=== PATIENT | female | born 1955 | race Caucasian/White ===

== ENCOUNTER → 2016-11-11 | Outpatient (CLI) | payer OTHER ==
[~2016-11-11] MED LIST: ASPIRIN81 M1 PO; AUGMENTIN 875875 MG PO; FLEXERIL10 MG PO; HYDROCHLOROTHIA25 MG PO; INDOMETHACIN50 MG PO; KLOR-CON 1010 MEQ PO; LASIX40 MG PO; LOVASTATIN20 MG PO; METFORMIN500 MG PO; NAPROSYN500 MG PO; NEXIUM40 MG PO; NORVASC10 MG PO; PRILOSEC40 M1 PO; SEPTRA DS 800 M1 TAB PO; STOOL SOFTENER100 MG PO; VICODIN 500 MG-1 TAB PO; VITAMIN D2400 IU PO; VITAMIN D50000 I3 PO; ZESTRIL40 MG PO; ZYLOPRIM100 MG PO
[2016-11-11 09:43] LABS: BASO # 0.1 10*3/uL (0.0-0.1); BASO % 0.7 % (0.0-1.0); EOS # 0.2 10*3/uL (0.0-0.4); EOS % 1.4 % (1.0-4.0); HEMATOCRIT 44.4 % (37.0-47.0); HEMOGLOBIN 14.1 g/dl (12.0-16.0); IG # 0.2 10*3/uL (0.0-0.1); LYMPH # 2.8 10*3/uL (1.3-4.4); LYMPH % 16.7 % (27.0-41.0); MEAN CELL VOLUME 85.7 fl (81.0-99.0); MEAN CORPUSCULAR HGB 27.2 pg (27.0-31.0); MEAN CORPUSCULAR HGB CONC 31.8 g/dl (33.0-37.0); MONO # 1.1 10*3/uL (0.1-1.0); MONO % 6.7 % (3.0-9.0); NEUT # 12.2 10*3/uL (2.3-7.9); NEUT % 73.4 % (47.0-73.0); PLATELET COUNT AUTOMATED 338 10*3/uL (130-400); RED BLOOD COUNT 5.18 10*6/uL (4.10-5.10); RED CELL DISTRI WIDTH 16.1 % (0-14.5); WHITE BLOOD COUNT 16.6 10*3/uL (4.8-10.8)
[2016-11-11 10:00] LABS: ALBUMIN 3.3 gm/dl (3.1-4.5); ALKALINE PHOSPHATASE 180 U/L (45-117); BILIRUBIN, TOTAL 0.3 mg/dl (0.2-1.0); BUN 16 mg/dl (7-24); CARBON DIOXIDE 24 mmol/L (21-32); CHLORIDE 106 mmol/L (98-107); CHOLESTEROL 137 mg/dL (<200); EST GLOM FILT AFRICAN AMERICAN > 60 ml/min; GLUCOSE 126 mg/dL (65-99); HDL CHOLESTEROL 47 mg/dl (40-60); LDL CHOLESTEROL 50 mg/dL (9-159); POTASSIUM 4.3 mmol/L (3.5-5.1); SGOT/AST 14 IU/L (3-35); SGPT/ALT 29 U/L (12-78); SODIUM 142 mmol/L (136-145); TRIGLYCERIDES 200 mg/dl (<150); VLDL CHOLESTEROL 40 mg/dL (6-40)
[2016-11-11 10:01] LABS: FREE T4 1.25 ng/dl (0.76-1.46)
[2016-11-11 10:27] LABS: FOLIC ACID 7.71 ng/mL (>5.38); VITAMIN D, 25-HYDROXY 40.2 ng/mL (30-100)
== END | disposition home or self-care (01) ==
LOC: CT 11-05 13:00 → LAB 11-10 14:26 → CT 10:00
PROVIDERS: Internal Medicine
DX: Z00.00 Encounter for general adult medical examination without abnormal findings (principal); Z13.1 Encounter for screening for diabetes mellitus; Z13.21 Encounter for screening for nutritional disorder; Z13.220 Encounter for screening for lipoid disorders; K44.9 Diaphragmatic hernia without obstruction or gangrene; K57.30 Diverticulosis of large intestine without perforation or abscess without bleeding; M47.896 Other spondylosis, lumbar region; K80.20 Calculus of gallbladder without cholecystitis without obstruction; K76.0 Fatty (change of) liver, not elsewhere classified; G31.9 Degenerative disease of nervous system, unspecified; R10.9 Unspecified abdominal pain

== ENCOUNTER → 2018-01-08 | Outpatient (CLI) | payer OTHER | END | disposition home or self-care (01) | LOC: CT 01-07 09:00 | DX: M16.0 Bilateral primary osteoarthritis of hip (principal); M54.5 Low back pain ==

== ENCOUNTER → 2018-07-22 | Outpatient (CLI) | payer OTHER ==
[~2018-07-22] MED LIST changes: +CEFUROXIME AXE500 MG PO; +COLACE100 MG PO; +DILTIAZEM HCL120 MG PO; +GUAIFENESIN600 MG PO; +METFORMIN ER500 MG PO; -METFORMIN500 MG PO; +NEURONTIN300 MG PO; +SENNA8.6 MG PO; -STOOL SOFTENER100 MG PO; +VITAMIN D3 PO; +VITAMIN D350000 UNIT PO
== END | disposition home or self-care (01) ==
LOC: WOUNDCARE 08:41
DX: E11.622 Type 2 diabetes mellitus with other skin ulcer (principal); L97.228 Non-pressure chronic ulcer of left calf with other specified severity; L97.811 Non-pressure chronic ulcer of other part of right lower leg limited to breakdown of skin; I87.313 Chronic venous hypertension (idiopathic) with ulcer of bilateral lower extremity; E11.40 Type 2 diabetes mellitus with diabetic neuropathy, unspecified; I10 Essential (primary) hypertension; E78.5 Hyperlipidemia, unspecified; K21.9 Gastro-esophageal reflux disease without esophagitis; M10.9 Gout, unspecified; E66.9 Obesity, unspecified; Z68.43 Body mass index [BMI] 50.0-59.9, adult; Z87.891 Personal history of nicotine dependence

== ENCOUNTER 2019-03-30 09:18 | Inpatient (IN) | payer OTHER ==
[2019-03-30] VITALS (9 sets, daily range): BP systolic 103–208; BP diastolic 44–140
[~2019-03-30] VITALS: Ht 157.5 cm; Wt 127.0 kg
--- NOTE | ~2019-03-30 | EKG ---
[place], [place] ELECTROCARDIOGRAM REPORT NAME: BETHANY RAMOS UNIT #: [id number] ROOM: [facility] DOCTOR: RONALDO DRAFT REPORT BIRTHDATE: [birth year] [facility] Test Date: 2019-03-30 Test Time: 09:35:01 Pat Name: BETHANY RAMOS Department: Room: [facility] Gender: F Plastic Maker: Arianna Perkins : 1955 Requested By: CECILIA MADRID Order Number: [id number] Reading MD: Milind Snider Measurements Intervals [place] Rate: 117 P: 71 DC: 142 QRS: 9 QRSD: 99 T: 120 QT: 324 QTc: 452 Interpretive Statements Sinus tachycardia Anteroseptal infarct, old Abnormal T, consider ischemia, lateral leads No previous ECG available for comparison Electronically Signed On 03-31-2019 4:18:27 PDT by Milind Snider CM:EKGRPT:ELECTROCARDIOGRAM REPORT [id number] CECILIA WILKINS DRAFT REPORT CECILIA MADRID DO
--- NOTE | ~2019-03-30 | PR ---
[place], [place] PROGRESS NOTE NAME: BETHANY RAMOS UNIT #: [id number] ROOM: 502 DOCTOR: AMELIE MILLS MD BIRTHDATE: [birth year] DOS: 04/01/2019 REASON FOR VISIT: Elevated cardiac enzymes and CHF. SUBJECTIVE: The patient is feeling better, still on oxygen. Denies any chest pain. No PND, no orthopnea. Slightly short of breath, but no palpitation or dizziness. She did have some nausea this morning. REVIEW OF SYSTEMS: Review of the 8 systems negative except as mentioned above. RHYTHM STRIPS: The patient in sinus rhythm. PHYSICAL EXAMINATION: VITAL SIGNS: Blood pressure 160/70, pulse 98, respiratory rate 20. GENERAL: Alert, comfortable, in no acute distress. HEENT: Pupils are round and equal. No jaundice. Tongue was moist and pharynx clear. NECK: Supple, no distended neck veins, no carotid bruit. CHEST: Symmetrical, nontender. LUNGS: A few scattered rhonchi. HEART: Regular rhythm, no S3, no palpable thrills. Grade 1/6 systolic murmur. ABDOMEN: Obese, nontender. EXTREMITIES: Showed trace to 1+ edema. Distal pulses palpable. SKIN: Warm and dry. No cyanosis, no clubbing. RECTAL: Deferred. GENITOURINARY: Deferred. NEUROLOGIC: The patient is alert with no focal neurologic deficit. MEDICATIONS AND LABORATORY DATA: Reviewed. IMPRESSION: 1. Acute on chronic respiratory failure, improving. 2. Acute diastolic heart failure, resolved. 3. Left ventricular dysfunction, EF 45-50%. 4. Hypertension. 5. Morbid obesity. 6. Borderline elevation of troponin due to demand ischemia from her hypoxic respiratory failure. 7. Lexiscan stress test today. 8. Continue current medications. 9. No family at bedside at the time of examination. 10. Further recommendation based on her stress test findings. [place], [place] PROGRESS NOTE NAME: BETHANY RAMOS UNIT #: [id number] ROOM: 502 DOCTOR: AMELIE MILLS MD BIRTHDATE: [birth year] AMELIE MILLS MD CM:PNTRANS 03 9 AMELIE MILLS MD 04/02/19149 interface
--- NOTE | ~2019-03-30 | PR ---
[place], [place] PROGRESS NOTE NAME: BETHANY RAMOS UNIT #: [id number] ROOM: 502 DOCTOR: CANDACE ROSS MD BIRTHDATE: [birth year] DOS: 04/02/2019 PULMONARY PROGRESS NOTE SUBJECTIVE: The patient has been noted comfortable at this time without any acute distress this morning of assessment. She has completed the stress testing yesterday as well. The patient edema of lower extremity was resolving. Shortness of breath improved. The oxygen requirement of the noted as resolution of the hypoxia noted at rest on room air of oxygen. She has been refusing use of BiPAP. OBJECTIVE: VITAL SIGNS: Normal temperature, respiratory rate of 18, heart rate 72, blood pressure 151/61. The pulse oxygen saturation recorded as 97% saturation at rest on room air. HEENT: Examination shows head was atraumatic. Eyes nonicterus. NECK: Supple. CARDIOVASCULAR: S1, S2 audible. LUNGS: Without any wheezing or crackles. Decreased breath sounds in the lungs. ABDOMEN: Soft and obese. EXTREMITIES: Noted resolving cellulitis of lower extremity has edema. LABORATORY DATA: BMP this morning is 29, creatinine 1.04, CO2 of 34. IMPRESSION: 1. Stable respiratory status was noted at present time noted to be comfortable. 2. Resolved in marked improvement noted with veksk-zs-gtudvfa hypercapnic and hypoxemic respiratory failure as well. 3. Obstructive sleep apnea disorder. 4. Bronchial asthma. PLAN OF MANAGEMENT: Starting the patient on oral prednisone at this time. Monitor oxygen saturation. Continue diuretic therapy, plan of management. Additional treatment changes will be made for this patient based on the progression of the illness. [place], [place] PROGRESS NOTE NAME: BETHANY RAMOS UNIT #: [id number] ROOM: 502 DOCTOR: CANDACE ROSS MD BIRTHDATE: [birth year] CANDACE FOREMAN MD CM:PNTRANS [id number] CANDACE LAWRENCE MD 04/02/19 1600 interface
--- NOTE | ~2019-03-30 | PR ---
[place], [place] PROGRESS NOTE NAME: BETHANY RAMOS UNIT #: [id number] ROOM: [facility] DOCTOR: PENG URIAS MD BIRTHDATE: [birth year] DOS: 03/31/2019 SUBJECTIVE: The patient says her breathing is significantly improved, although still not at her baseline. OBJECTIVE: GENERAL APPEARANCE: The patient is alert and oriented x 3, in no visible distress. Morbid obesity and generalized weakness. VITAL SIGNS: Blood pressure 153/81, heart rate of 88 beats per minute, breathing 18-20 times per minute, temperature 98.1 degrees Fahrenheit. HEENT AND NECK: Exam within normal limits. CARDIOVASCULAR SYSTEM: Heart rate is regular in rate and rhythm. S1 and S2 normally audible. LUNGS: Clear to auscultation. ABDOMEN: Soft, nontender. No obvious organomegaly. Bowel sounds are present. EXTREMITIES: Without significant cyanosis or edema. Chronic stasis dermatitis in both legs. IMPRESSION: 1. The patient with uxazw-sgzw-btovumh systolic type congestive heart failure, improving with diuresis with Bumex. Serum electrolytes, BUN and creatinine are all being monitored. 2. Acute exacerbation of chronic obstructive pulmonary disease and pneumonia, being treated with Levaquin. The patient still has leukocytosis, now apparently secondary to Solu-Medrol. 3. Pneumonic infiltrates, being treated with Levaquin. I will repeat chest x-ray. White cell count is improving with treatment with antibiotics. 4. Morbid obesity. The patient working with dietary and physical therapy for ambulatory dysfunction. 5. Benign essential hypertension. Blood pressures are controlled. The patient now on metoprolol and lisinopril. 6. Type 2 diabetes mellitus. The patient remains on metformin and no concentrated sweet diet. 7. Mixed hyperlipidemia, treated with simvastatin. 8. Chronic gouty arthritis, asymptomatic. We will continue to follow. 9. Mixed-type hyperlipidemia. The patient is on simvastatin. [place], [place] PROGRESS NOTE NAME: BETHANY RAMOS UNIT #: [id number] ROOM: [facility] DOCTOR: PENG URIAS MD BIRTHDATE: [birth year] PENG URIAS MD CM:BETZAIDA [id number] PENG URIAS MD 03/31/19 3622 interface
--- NOTE | ~2019-03-30 | DS ---
[place], [place] DISCHARGE SUMMARY NAME: BETHANY RAMOS [facility] #: [id number] UNIT #: [id number] ROOM: 502 DOCTOR: PENG URIAS MD BIRTHDATE: [birth year] DOS: 04/02/2019 DISCHARGE DIAGNOSES: 1. Acute over chronic systolic type congestive heart failure with 45% left ventricular ejection fraction. 2. Acute exacerbation of chronic obstructive pulmonary disease. 3. Borderline elevation of troponin, evaluated by Cardiology with normal cardiac stress test, thought to be secondary to respiratory failure and hypoxemia. 4. Pneumonia. 5. Leukocytosis. 6. Mixed type hyperlipidemia. 7. Chronic gouty arthritis. 8. Type 2 diabetes mellitus. 9. Benign essential hypertension. 10. Morbid obesity. 11. Gastroesophageal reflux disease and esophagitis. 12. Esophagus stricture history status post dilatation. 13. Chronic gouty arthritis. 14. Bilateral stasis dermatitis in both legs. HOSPITAL COURSE: The patient was admitted with increased shortness of breath, acute over chronic systolic type congestive heart failure, pneumonia on the chest x-ray. The patient was admitted and treated with IV Bumex. She diuresed very well and chest x-ray now showed complete clearing of CHF and pneumonia. Pneumonia and leukocytosis, treated with Levaquin and resolved. Acute exacerbation of COPD, acute over chronic respiratory failure, resolved with treatment. Dr. Duggan, the children's entertainer followed. She was treated with bronchodilators, corticosteroids and oxygen as needed. She has returned to baseline, respiratory status has returned to baseline. Type 2 diabetes mellitus. Blood sugar was monitored, treated and she was kept on a no concentrated sweet diet. Benign essential hypertension. Blood pressures are staying normal with treatment. She is on lisinopril and metoprolol. Chronic constipation, being treated with Colace and senna. The patient is moving bowels. Mixed hyperlipidemia, being treated with simvastatin. LABORATORY DATA: The patient's white cell count is now 14,800 from use of corticosteroids. BUN and creatinine 29 and 1.04. Chest x-ray is normal now. No CHF or pneumonia seen on the latest chest x-ray prior to discharge. DISCHARGE MANAGEMENT: Levaquin 750 mg daily for 4 more days, gabapentin 400 mg at bedtime, Protonix 40 mg a day, lisinopril 20 mg a day, aspirin 81 mg a day, [place], [place] DISCHARGE SUMMARY NAME: BETHANY RAMOS UNIT #: [id number] ROOM: 502 DOCTOR: BRIDGETT AVENDANO,PENG Nicole BIRTHDATE: [birth year] metformin 500 mg daily, potassium chloride 10 mEq b.i.d., sennoside 8.6 mg b.i.d., metoprolol 50 mg b.i.d., Colace 100 mg b.i.d., simvastatin 20 mg a day. FOLLOWUP: With PCP within 1 week of discharge. One hour time was spent on the patient's planning and discharge management. PENG URIAS MD CM:SHYLA [id number] PENG URIAS MD 04/02/19 1655 interface
--- NOTE | ~2019-03-30 | WRIGHTHP ---
[place], [place] PATIENT HISTORY AND PHYSICAL EXAM NAME: BETHANY RAMOS [facility] #: [id number] UNIT #: [id number] ROOM: [facility] DOCTOR: PENG URIAS MD BIRTHDATE: [birth year] DOS: 03/30/2019 HISTORY OF PRESENT ILLNESS: The patient is a 64-year-old female with a past medical history of: 1. Morbid obesity. 2. Gastroesophageal reflux disease and esophagitis. 3. Type 2 diabetes mellitus. 4. Esophagus stricture. 5. Chronic congestive heart failure with 30-40% EF and severe concentric left ventricular hypertrophy. 6. Benign essential hypertension. 7. Chronic gouty arthritis. 8. Chronic stasis dermatitis in both legs. 9. Mixed type hyperlipidemia. The patient presented to the Emergency Department with increasing shortness of breath starting this morning and she was found to be in acute over chronic congestive heart failure with pneumonia on the chest x-ray. The patient was admitted to ICU from the ER for treatment and she says her breathing is improving with the diuretics she got in the Emergency Department. No chest pain. No dizziness or fainting episode. No other GI or urinary symptoms. REVIEW OF SYSTEMS: RESPIRATORY: Increasing shortness of breath. GASTROINTESTINAL: No nausea, vomiting, diarrhea, constipation. CARDIOVASCULAR: No chest pains or palpitations. RESPIRATORY: Increasing shortness of breath. ALLERGIES: Known allergies to CODEINE. FAMILY HISTORY: Noncontributory. HOME MEDICATIONS: Potassium, senna, metoprolol, metformin, gabapentin, Colace, lisinopril, aspirin, metoprolol, simvastatin, Bumex. PHYSICAL EXAMINATION: GENERAL: Alert and oriented, morbidly obese. HEENT AND NECK: Extraocular movements are intact. Sclerae are anicteric. Oral mucosa is moist and clean. No obvious facial weakness. Neck is supple without any lymphadenopathy. No thyromegaly. No JVD. No carotid arterial bruits. LUNGS: Clear to auscultation. No wheezing. No rhonchi. CARDIOVASCULAR SYSTEM: Heart rate is regular in rate and rhythm. S1 and S2 normally audible. No significant murmur or any other abnormal cardiac sounds. ABDOMEN: Soft, nontender. No obvious organomegaly. Bowel sounds are present. No obvious herniation. EXTREMITIES: The patient with chronic stasis dermatitis and thickening of the skin of both legs with some redness, which is chronic. CENTRAL NERVOUS SYSTEM: Alert and oriented x 3. Cranial nerves II-XII are intact. Speech is normal. The patient is able to move all extremities. Normal muscle strength. Deep tendon reflexes are equal on both sides. [place], [place] PATIENT HISTORY AND PHYSICAL EXAM NAME: BETHANY RAMOS UNIT #: [id number] ROOM: [facility] DOCTOR: PENG URIAS MD BIRTHDATE: [birth year] downgoing. LABORATORY DATA: Slight elevation of troponin I levels to 0.345. Urinalysis is without any signs of infection. White cell count elevated to 24,000. Blood sugar elevated to 228, otherwise normal serum electrolytes. Chest x-ray showing increased interstitial markings and pneumonia versus congestive heart failure. Blood gases showing a pH of 7.2, pCO2 of 73.3. IMPRESSION: 1. Acute exacerbation of chronic obstructive pulmonary disease with acute over chronic respiratory failure. The patient is being observed in ICU and treated with BiPAP and Dr. Duggan, the affirmative action specialist, is to follow. 2. The patient with pneumonia, being treated with Levaquin and will be followed. The patient has white cell count elevated to 24,000. 3. Acute over chronic systolic type congestive heart failure. The patient is being diuresed with IV Bumex and serum electrolytes and kidney function to be monitored. 4. Morbid obesity. The patient is to work with physical therapy. 5. Type 2 diabetes mellitus. Blood sugars to be monitored and treated and kept on no concentrated sweet diet. 6. Chronic gouty arthritis to be treated and followed. The patient is asymptomatic. 7. Benign essential hypertension. The patient remains on lisinopril and metoprolol. 8. Chronic constipation, treated with Colace and senna. 9. Mixed hyperlipidemia, treated with simvastatin and followed. PENG URIAS MD CM:HISPHYS:PATIENT HISTORY AND PHYSICAL EXAMINATION 37 08 PENG URIAS MD 03/30/191908 interface
--- NOTE | ~2019-03-30 | CON ---
[place], [place] REPORT OF CONSULTATION NAME: BETHANY RAMOS UNIT #: [id number] ROOM: [facility] DOCTOR: KELLEN LAWRENCE MD,CANDACE BIRTHDATE: [birth year] DOS: 03/31/2019 PULMONARY CONSULTATION CONSULTATION REQUESTED BY: Dr. Carvalho. REASON FOR CONSULTATION: For the assessment of current suspected acute pneumonia and other respiratory complaints. HISTORY OF PRESENT ILLNESS: This is a very poor historian 64-year-old patient admitted to the hospital under the care of Dr. Carvalho on the date of 03/30/2019. The patient was reporting symptoms of increased shortness of breath occurring at home. She has been noted increased edema of the lower extremities. The patient reported symptoms of cough, at times without any sputum expectoration. Denies symptoms of acute chest pain. The patient denies symptoms of fever or chills associated with current symptom. She has been assessed in the hospital with chest x-ray reported possibility of acute pneumonia, congestive heart failure, and requiring hospitalization in the Intensive Care Unit. REVIEW OF SYSTEMS: CONSTITUTIONAL: Fatigue and tiredness reported. Denies symptoms of fever or chills. EYES: Denies any burning, redness, or tenderness. EARS, NOSE, THROAT, EAR, NOSE, THROAT SYMPTOMS: No sore throat, hoarseness, or otalgia. CARDIOVASCULAR: Increasing edema of bilateral lower extremity was also reported. There were no symptoms of palpitations. GENITOURINARY SYMPTOMS: No dysuria, suprapubic pain, or hematuria. No new symptoms or urinary incontinence. GASTROINTESTINAL: Chronic severe obesity noted without any recent abnormal weight loss history. MUSCULOSKELETAL: No acute joint pain. CENTRAL NERVOUS SYSTEM: No dizziness, headache, diplopia or syncopal episode. Remaining systems were reviewed. They were noted all negative. PAST MEDICAL HISTORY: 1. History of congestive heart failure with a reduced ejection fraction with EF previously noted 40% with one of the previous echocardiogram. 2. Severe morbid obesity. 3. Gastroesophageal reflux. 4. Type 2 diabetes mellitus. 5. Esophageal stricture. 6. Essential hypertension. 7. Gouty arthritis. 8. Chronic stasis pigmentation lower extremities with edema. 9. Mixed hyperlipidemia. PAST SURGICAL HISTORY: 1. History of hernia repair. [place], [place] REPORT OF CONSULTATION NAME: BETHANY RAMOS UNIT #: [id number] ROOM: [facility] DOCTOR: KELLEN LAWRENCE MD,CANDACE BIRTHDATE: [birth year] 2. Hysterectomy. 3. Incisional abdominal hernia as well. SOCIAL HISTORY: The patient denies any tobacco, alcohol or illicit drug use. Stays at home. FAMILY HISTORY: The patient reported as none. MEDICATIONS: The medications which was listed for this patient from the home setting are metoprolol, potassium, metformin, gabapentin, Colace, lisinopril, aspirin, simvastatin and oral Bumex. DRUG ALLERGIES: Noted as ALLERGIES TO CODEINE, PHOSPHATE. PHYSICAL EXAMINATION: GENERAL: A 64-year-old female currently stated is comfortably on the bed without any distress. Height of 5 feet 2 inches, weight of 302 pounds, BMI 55.5. VITAL SIGNS: Normal temperature, respiratory rate recorded 32 on admission, currently noted 18 this morning; heart rate ranging between 88, noted 123 on admission; blood pressure 128/140, on admission noted 153/81. Pulse oxygen saturation on 2 liters nasal cannula 98% saturation, on admission 100%, nonrebreather mask as 88%. HEENT: Examination shows head was atraumatic. Eyes nonicterus. NECK: Supple. Severe decreased posterior pharyngeal space, high tongue base, crowding of soft tissue structures. LUNGS: Severe decreased breath sounds noted in the lungs bilaterally. EXTREMITIES: The patient noted with chronic lymphedema superimposed acute edema with finding consistent with acute cellulitis of bilateral lower extremities. There were no open areas. VISIBLE SKIN: No noted lesions or rashes. MUSCULOSKELETAL: Without acute deformities. CENTRAL NERVOUS SYSTEM: Generalized weakness without any gross focal neurologic deficit. Limited exam. LABORATORY DATA: Arterial blood in the Emergency Room; pH of 7.19, pCO2 of 73, pO2 of 138. 100% nonrebreather mask with arterial blood gas was started on bilevel treatment few hours later, pH of 7.37, pCO2 of 50, pO2 94.3. The CMP that was done on 03/30/2019; glucose 228, BUN 11, creatinine of 1.03. Sodium was normal, potassium was normal. AST, ALT, alkaline phosphatase were noted mildly elevated. CBC that was done yesterday; WBC count 24.0, hemoglobin 14.8, platelet count were normal. CBC this morning; WBC count 15.7, hemoglobin and hematocrit normal, platelet count normal. BMP this morning, normal BUN and creatinine. Glucose was elevated as 199. The chest x-ray, 1 view that was done in the Emergency Room yesterday was reviewed with the patient personally and extremely limited study was noted because of large body habitus. Possibility of pleural fluid with ongoing congestive heart failure and consolidation right lower lobe cannot be completely excluded. IMPRESSION: [place], [place] REPORT OF CONSULTATION NAME: BETHANY RAMOS UNIT #: [id number] ROOM: [facility] DOCTOR: KELLEN LAWRENCE MD,[facility] BIRTHDATE: [birth year] 1. The patient will be currently admitted to the hospital noted severe acute hypercapnic and hypoxemic respiratory failure, result of acute congestive heart failure with peripheral edema patient with reduced ejection fraction is very likely. 2. Possible pneumonia consolidation right lower lobe cannot be excluded in view of the patient's leukocytosis. 3. Acute exacerbation of bronchial asthma was also considered with past history of tobacco use as a new finding. 4. Severe morbid obesity as well as strong suspicion of obstructive sleep apnea disorder, not assessed in the past. 5. Hyperglycemia related to corticosteroids administration. 6. Normal LFT, rule out hepatic steatosis. PLAN OF THERAPY: The patient has been ordered the BiPAP setting of 14 ____ that will be continued intermittently during the day, continue at nighttime. Continue diuretic therapy at this time with very close monitoring of BUN and creatinine. DVT prophylaxis with the use of the Lovenox. Monitor BUN and creatinine closely. Monitor culture results of the sputum and if the patient is expectorating any sputum in the blood as well. Continue other therapy, plan of management, and additional treatment changes will be ordered based on the progression of the illnesses. Usual care. Repeat another PA and lateral chest x-ray to reassess the current pleural fluid and other abnormalities. Obtain CT scan of the chest if necessary. The patient needs to be assessed as outpatient for the assessment of suspected obstructive sleep apnea disorder, but if the patient agrees for that. Other therapy, plan of management with additional treatment changes will be done based on progression of the illness. The cardiology consultation assessment has been ordered by primary care physician, which is pending. Assess echocardiogram as well. Other additional treatment changes will be made based on progression of the illness. Thanks for allowing me to participate in the care of this patient. CANDACE FOREMAN MD CM:CONSTR:REPORT OF CONSULTATION 1529 03/31/19 2047 interface
--- NOTE | ~2019-03-30 | ST ---
[place], [place] EXERCISE STRESS TEST REPORT [id number] #: [id number] ROOM: [facility] DOCTOR: LINA AVENDANO,AMELIE BIRTHDATE: [birth year] DOS: 04/01/2019 LEXISCAN STRESS TEST REASON FOR TEST: Elevated cardiac enzymes and CHF. PHYSICAL EXAMINATION NECK: Supple. LUNGS: Clear anteriorly. HEART: Regular rhythm. PROTOCOL: Lexiscan protocol. Maximum heart rate 104. Peak blood pressure 160/70. SYMPTOMS: The patient is chest pain free. EKG: Resting EKG shows sinus rhythm. Stress EKG showed no ischemia, no arrhythmias. CONCLUSION: Clinically, the patient is chest pain free. EKG nonischemic. POST-STRESS COMPLICATIONS: None. The patient received a total of 0.4 mg Lexiscan. AMELIE MILLS MD CM:STRESS:EXERCISE STRESS TEST REPORT [id number] AMELIE MILLS MD
--- NOTE | ~2019-03-30 | PR ---
[place], [place] PROGRESS NOTE NAME: BETHANY RAMOS UNIT #: [id number] ROOM: [facility] DOCTOR: AMELIE MILLS MD BIRTHDATE: [birth year] DOS: 03/31/2019 CARDIOLOGY FOLLOWUP NOTE REASON FOR VISIT: Elevated troponin and CHF. SUBJECTIVE: The patient is feeling better, less short of breath. No PND or orthopnea. No nausea, vomiting, diarrhea. No fever and chills. REVIEW OF SYSTEMS: Review of 10 systems negative except as mentioned above. PHYSICAL EXAMINATION: VITAL SIGNS: Blood pressure 151/81, pulse 88, respiratory rate 18, weight 137 kilos. RHYTHM STRIPS: The patient in sinus rhythm. GENERAL: Alert, comfortable, in no acute distress. HEENT: Pupils are round and equal, no jaundice. NECK: Supple, no distended neck veins. No carotid bruit. CHEST: Symmetrical, nontender. LUNGS: Few scattered rhonchi. Fair air entry bilaterally. HEART: Regular rhythm, no S3, no palpable thrills. ABDOMEN: Benign, nontender. Bowel sounds normal. EXTREMITIES: Showed trace edema. Distal pulses palpable. SKIN: Warm and dry. No cyanosis, no clubbing. RECTAL: Deferred. GENITOURINARY: Deferred. NEUROLOGIC: The patient is alert with no focal neurologic deficit. MEDICATIONS AND LABS: Reviewed. IMPRESSION: 1. Borderline elevation of troponin due to demand ischemia. 2. Acute respiratory failure, stable. 3. Acute diastolic heart failure. 4. Hypertension. 5. Morbid obesity. RECOMMENDATIONS: 1. Continue current medications. 2. A 2D echo is pending. 3. Lexiscan stress tomorrow to rule out ischemia due to her elevated troponin and CAD risk factors. 4. No family at bedside at the time of my examination. [place], [place] PROGRESS NOTE NAME: BETHANY RAMOS UNIT #: [id number] ROOM: [facility] DOCTOR: AMELIE MILLS MD BIRTHDATE: [birth year] AMELIE MILLS MD CM:PNTRANS [id number] AMELIE MILLS MD 04/01/19 0038 interface
--- NOTE | ~2019-03-30 | PR ---
[place], [place] PROGRESS NOTE NAME: BETHANY ARMOS UNIT #: [id number] ROOM: [facility] DOCTOR: KELLEN LAWRENCE MD,CANDACE BIRTHDATE: [birth year] DOS: 04/01/2019 SUBJECTIVE: The patient was seen and examined ____. She has been noted comfortable at this time, resting in the bed. She continued to be diuresed with IV Bumex. She has been currently planned getting stress testing today. She has not been reported any symptoms of chest pain, shortness breath was improving. There was no coughing, wheezing stated by the patient. The patient's remaining systems were reviewed, they were noted all negative. OBJECTIVE: VITAL SIGNS: For the patient recorded normal temperature, respiratory rate of 16, heart rate 71, blood pressure 134/60 and 157/86. Intake as 1400 mL, output 1800 mL and negative approximately 400 mL. Pulse ox saturation on 2 liters nasal cannula 99% saturation recorded. HEENT: Examination shows head was atraumatic. Eyes nonicterus. NECK: Supple. It was obese. CARDIOVASCULAR SYSTEM: S1, S2 audible. LUNGS: The patient was noted with decreased breath sounds bilaterally with improvement since previous examination. ABDOMEN: Soft with morbid obesity. EXTREMITIES: The patient still has edema, partial reduction. Cellulitis of lower extremity was still noted bilaterally. MUSCULOSKELETAL: Noted without any acute deformities. CENTRAL NERVOUS SYSTEM: The patient noted intact. There were no focal deficits. VISIBLE SKIN: The patient noted with evidence of cellulitis of bilateral lower extremities. LABORATORY DATA: CBC today: WBC count 19.8. Hemoglobin and hematocrit and platelet count was normal. BMP this morning, normal BUN and creatinine. IMPRESSION: 1. The patient who has been currently noted with acute hypercapnic, severe hypoxemic respiratory failure. 2. Acute congestive heart failure as well. 3. Congestive heart failure with reduced ejection fraction. 4. Acute exacerbation of bronchial asthma as well. 5. Severe morbid obesity, suspicion of obstructive sleep apnea disorder. 6. Cellulitis of lower extremities. 7. Hyperglycemia related to corticosteroids. PLAN OF CARE: Continuation of bronchodilators, oxygen supplementation and the diuretics. Decrease Solu-Medrol dose 40 mg daily. The patient would also help to improve the hyperglycemia. Bronchodilators. Continue antibiotic for acute cellulitis. Usual care, other supportive plan of management. Additional treatment changes will be made based on progression of the illness. [place], [place] PROGRESS NOTE NAME: BETHANY RAMOS UNIT #: [id number] ROOM: [facility] DOCTOR: CANDACE ROSS MD BIRTHDATE: [birth year] CANDACE FOREMAN MD CM:PNTRANS [id number] CANDACE LAWRENCE MD 04/01/19 1500 interface
--- NOTE | ~2019-03-30 | PR ---
[place], [place] PROGRESS NOTE NAME: BETHANY RAMOS UNIT #: [id number] ROOM: 502 DOCTOR: PENG URIAS MD BIRTHDATE: [birth year] DOS: 04/01/2019 SUBJECTIVE: The patient's breathing continues to improve, but she is still requiring oxygen. OBJECTIVE: VITAL SIGNS: Blood pressure 134/60, heart rate 91 beats per minute, breathing 17 times per minute, temperature 98 degrees Fahrenheit. The patient is wearing oxygen by nasal cannula. GENERAL APPEARANCE: The patient is alert and oriented x 3, in no visible distress. Morbid obesity. HEENT AND NECK: Exam within normal limits. CARDIOVASCULAR SYSTEM: Heart rate is regular in rate and rhythm. S1 and S2 normally audible. LUNGS: Clear to auscultation. ABDOMEN: Soft, nontender. No obvious organomegaly. Bowel sounds are present. EXTREMITIES: Without significant cyanosis or edema. IMPRESSION: 1. Acute systolic type congestive heart failure with about 45% left ventricular ejection fraction, improving with diuresis with IV Bumex. Serum electrolytes are being monitored. BUN and creatinine and serum electrolytes were normal. 2. The patient's pneumonia and leukocytosis being treated with Levaquin. Dr. Olga Lidia zapata. 3. Positive cardiac enzymes. The patient to go to [facility] for heart catheterization after she has been stabilized. It was discussed with Dr. Snider, the director of program management. 4. Mixed type hyperlipidemia, treated with simvastatin. 5. Chronic gouty arthritis, asymptomatic, being followed. 6. Type 2 diabetes mellitus. The patient remains on metformin and no concentrated sweet diet. 7. Benign essential hypertension, treated and controlled. 8. Morbid obesity. The patient working with Dietary. 9. Acute exacerbation of chronic obstructive pulmonary disease, improved and pneumonia, improving with treatment with DuoNeb, Solu-Medrol and Levaquin. [place], [place] PROGRESS NOTE NAME: BETHANY RAMOS UNIT #: [id number] ROOM: [facility] DOCTOR: PENG URIAS MD BIRTHDATE: [birth year] PENG URIAS MD CM:PNTRANS [id number] PENG URIAS MD 04/01/192219 interface
[~2019-03-30 09:18] MED LIST changes: +KLOR-CON 1010 ME1 PO; -KLOR-CON 1010 MEQ PO
--- NOTE | 2019-03-30 09:34 | NUR ---
RESPIRATORY TITRATED O2 TO 80% ON BIPAP PATIENT TOLERATING WELL AT THIS TIME STATES SHE FEELS BETTER.
[2019-03-30 09:42] LABS: HEMATOCRIT 49.8 % (37.0-47.0); HEMOGLOBIN 14.8 g/dl (12.0-16.0); MEAN CELL VOLUME 89.9 fl (81.0-99.0); MEAN CORPUSCULAR HGB 26.7 pg (27.0-31.0); MEAN CORPUSCULAR HGB CONC 29.7 g/dl (33.0-37.0); MEAN PLATELET VOLUME 10.2 fl (9.6-12.3); PLATELET COUNT AUTOMATED 378 10*3/uL (130-400); RED BLOOD COUNT 5.54 10*6/uL (4.10-5.10); RED CELL DISTRI WIDTH 15.9 % (0-14.5)
[2019-03-30 09:43] LABS: ABG BASE EXCESS -2.8 mmol/L (-2.0-2.0); ABG HCO3 27.3 mmol/l (22-26); ABG O2 SATURATION 99.6 % (95-97)
--- NOTE | 2019-03-30 09:48 | NUR ---
CRITICAL RESULTS CALLED PH [phone] AND THE PCO2 73.3 DR MADRID NOTIFIED.
[2019-03-30 09:49] LABS: ARTERIAL BLOOD GAS PCO2 73.3 mmHg (35-45); ARTERIAL BLOOD GAS PH 7.195 (7.35-7.45)
--- NOTE | 2019-03-30 09:51 | NUR ---
PATIENT BIPAP TITRATED DOWN TO 40% AT THIS TIME BY RESPIRATORY.
[2019-03-30 09:52] LABS: ACT PARTIAL THROMBO TIME 29.6 SECONDS (20.0-32.1); INTERNATIONAL NORM RATIO 0.9 (2.0-3.5)
[2019-03-30 09:58] LABS: ALBUMIN 3.2 gm/dl (3.1-4.5); ALKALINE PHOSPHATASE 270 U/L (45-117); BUN 11 mg/dl (7-24); CHLORIDE 106 mmol/L (98-107); CREATININE 1.03 mg/dL (0.55-1.02); LIPASE 81 U/L (73-393); POTASSIUM 3.9 mmol/L (3.5-5.1); SGOT/AST 82 IU/L (3-35); SGPT/ALT 91 U/L (12-78); SODIUM 140 mmol/L (136-145); TOTAL PROTEIN 7.5 gm/dL (6.4-8.2)
[2019-03-30 10:04] LABS: TROPONIN I < 0.015 ng/ml (<0.045)
[2019-03-30 10:14] LABS: TOTAL CELLS COUNTED 100 #CELLS
[2019-03-30 10:16] LABS: PLATELET SUFFICIENCY NORMAL (NORMAL)
--- NOTE | 2019-03-30 10:28 | NUR ---
PULSE OX ON BIPAP 14/8 AND 40% O2 IS 97% PT REMAINS AWAKE/ALERT. FAMILY AT BEDSIDE. BAINS CATHETER IS PATENT/DRAINING CLEAR YELLOW URINE. ELISEO RN
--- NOTE | 2019-03-30 11:30 | NUR ---
PT IS FEELING BETTER. RESPIRATIONS ARE NOT LABORED. PT DOES NOT APPEAR SHORT OF BREATH. SKIN IS NO LONGER DIAPHORETIC. PT IS ADMITTED TO ICU.WAITING TO TRANSPORT PT THERE. ELISEO MARTIN
--- NOTE | 2019-03-30 12:40 | NUR ---
A 64, admitted to ICCU, under the services of Dr. BRIDGETT AVENDANO,PENG Nicole with a diagnosis of Respiratory distress and CHF. Chief complaint is increasing shortness of breath. Patient arrived via stretcher from ER. Monitor applied. Initial assessment completed. Vital signs taken and recorded. DR. BRIDGETT AVENDANO,PENG Nicole notified of admission to the unit. Orders received. See assessment for past medical history, medications and allergies. Patient and/or family oriented to unit. [facility]U visitation policy reviewed. Clothing/patient valuable form completed. OMAIRA THOMAS
[2019-03-30 13:57] LABS: ABG BASE EXCESS 3.1 mmol/L (-2.0-2.0); ABG O2 SATURATION 97.9 % (95-97); ARTERIAL BLOOD GAS PCO2 50.8 mmHg (35-45); ARTERIAL BLOOD GAS PH 7.372 (7.35-7.45); ARTERIAL BLOOD GAS PO2 94.3 mmHg (80-90)
[2019-03-30 14:47] LABS: BILIRUBIN NEGATIVE (NEGATIVE); BLOOD NEGATIVE (NEGATIVE); CLARITY CLEAR (CLEAR); COLOR YELLOW (YELLOW); GLUCOSE NEGATIVE (NEGATIVE); KETONE NEGATIVE (NEGATIVE); LEUKO ESTERASE NEGATIVE (NEGATIVE); NITRITE NEGATIVE (NEGATIVE); UROBILINOGEN 0.2 E.U./dl (0.2-1.0)
[2019-03-30] MEDS ORDERED: VITAMIN D50000 UNIT PO (14:52)
[2019-03-30] MEDS ORDERED: LOPRESSOR50 M1 PO (14:56)
[2019-03-30] MEDS ORDERED: METFORMIN HYDR500 MG PO (14:59)
[2019-03-30] MEDS ORDERED: ZOCOR20 MG PO (15:00)
[2019-03-30] MEDS ORDERED: NEURONTIN400 MG PO (15:04)
--- NOTE | 2019-03-30 16:28 | NUR ---
fAMILY IN TO VISIT.
--- NOTE | 2019-03-30 16:35 | NUR ---
PT. WAS TAKEN OFF BIPAP AND PLACED ON NC AT 3L, SAT 93%, HEART RATE 87.
--- NOTE | 2019-03-30 20:05 | NUR ---
PATIENT AWAKE, SITTING UP IN BED, VISITING WITH WHO IS IT THE BEDSIDE. PATIENT 2000 VITALS OBTAINED AND 2000 ASSESSMENT COMPLETED AT THIS TIME, PATIENT C/O MILD HEADACHE FROM EARLIER NITRO PATCH, WHICH HAS SINCE BEEN REMOVED BUT STATES HEADACHE HAS NOT EASED UP, WILL MEDICATE PATIENT ACCORDINGLY.
[2019-03-31] VITALS: BP 153/76
[2019-03-31 04:00] VITALS: BP 153/81
--- NOTE | 2019-03-31 04:32 | NUR ---
NIV NOT IN USE
[2019-03-31 06:52] LABS: HEMOGLOBIN 13.2 g/dl (12.0-16.0); MEAN CELL VOLUME 87.2 fl (81.0-99.0); MEAN CORPUSCULAR HGB 26.8 pg (27.0-31.0); MEAN CORPUSCULAR HGB CONC 30.7 g/dl (33.0-37.0); MEAN PLATELET VOLUME 10.8 fl (9.6-12.3); PLATELET COUNT AUTOMATED 357 10*3/uL (130-400); RED BLOOD COUNT 4.93 10*6/uL (4.10-5.10); RED CELL DISTRI WIDTH 15.7 % (0-14.5); WHITE BLOOD COUNT 15.7 10*3/uL (4.8-10.8)
[2019-03-31 07:02] LABS: BUN 15 mg/dl (7-24); CHLORIDE 104 mmol/L (98-107); CREATININE 0.92 mg/dL (0.55-1.02); POTASSIUM 3.8 mmol/L (3.5-5.1); SODIUM 141 mmol/L (136-145)
[2019-03-31 07:43] LABS: PLATELET SUFFICIENCY NORMAL (NORMAL); TOTAL CELLS COUNTED 100 #CELLS
[2019-03-31 08:00] VITALS: BP 168/76
--- NOTE | 2019-03-31 10:30 | NUR ---
Word Processing Supervisor in to see patient. She is currently having an echo done at bedside. Will follow up at a later time.
--- NOTE | 2019-03-31 11:08 | NUR ---
[address] Snider in to [facility]. [address] Dr. Carvalho to [facility]. Order for transfer to tele recieved.
[2019-03-31 12:00] VITALS: BP 147/75
--- NOTE | 2019-03-31 12:49 | NUR ---
Ibm Mainframe Developer in to talk to patient. Patient states lives at home alone in the [place] with family checking in on her. There are 0 steps in the home. Physician: Dr. Paola Mcintosh Pharmacy: [facility]: has had [facility] previously but not currently Patient's level of ADLs: MINIMAL ASSIST Patient has working utilities: yes DME: walker Follow-up physician's appointment after d/c: she prefers to make her own follow up appt after discharge Does patient want to access PORTAL?: no Discharge plan discussed with patient. She lives at home alone with her family checking in on her. She is independent in her ADLs and uses a walker for ambulation if her knee is bothering her. Discussed home health care services and she denies any home needs at this time. When medically stable she will be discharged to home. ZARINA PRICE
--- NOTE | 2019-03-31 15:28 | NUR ---
PHYSICAL THERAPY Physical therapy evaluation complete, ICCU. Full evaluation/details to follow. Moderate complexity evaluation (79336) per chart review and evaluation. PT to progress with transfers, gait, LE strength, and education on breathing/efficiency. Recommend Home Health PT/Nursing at discharge. Thank you. Ngozi Rosado,PT,DPT.
--- NOTE | 2019-03-31 15:55 | NUR ---
Medicated for c/o persistant DARLING scale 02/16. Family visiting.
[2019-03-31 16:00] VITALS: BP 157/69
--- NOTE | 2019-03-31 19:41 | NUR ---
FAMILY MEMBERS VISIT.
[2019-03-31 20:00] VITALS: BP 141/59
--- NOTE | 2019-03-31 21:28 | NUR ---
ASSISTED WITH BATH. BED LINEN CHANGED.
[2019-04-01] VITALS: BP 143/70
[2019-04-01 04:00] VITALS: BP 134/60
[2019-04-01 06:17] LABS: BASO % 0.2 % (0.0-1.0); HEMATOCRIT 43.3 % (37.0-47.0); HEMOGLOBIN 12.6 g/dl (12.0-16.0); LYMPH # 1.1 10*3/uL (1.3-4.4); LYMPH % 5.8 % (27.0-41.0); MEAN CORPUSCULAR HGB 26.2 pg (27.0-31.0); MEAN CORPUSCULAR HGB CONC 29.1 g/dl (33.0-37.0); MEAN PLATELET VOLUME 10.9 fl (9.6-12.3); MONO % 5.2 % (3.0-9.0); NEUT # 17.4 10*3/uL (2.3-7.9); PLATELET COUNT AUTOMATED 366 10*3/uL (130-400); RED BLOOD COUNT 4.81 10*6/uL (4.10-5.10); RED CELL DISTRI WIDTH 15.9 % (0-14.5); WHITE BLOOD COUNT 19.8 10*3/uL (4.8-10.8)
[2019-04-01 06:21] LABS: BUN 22 mg/dl (7-24); CHLORIDE 102 mmol/L (98-107); CREATININE 1.01 mg/dL (0.55-1.02); POTASSIUM 4.3 mmol/L (3.5-5.1); SODIUM 142 mmol/L (136-145)
[2019-04-01 07:54] VITALS: BP 157/86
--- NOTE | 2019-04-01 08:35 | NUR ---
PT TO XRAY VIA WC.
--- NOTE | 2019-04-01 08:53 | NUR ---
PT RETURNED FROM XRAY. PT C/O NAUSEA AFTER INJECTED FOR STRESS TEST. DR URIAS UPDATED AND NEW ORDER RECEIVED FOR IV ZOFRAN.
--- NOTE | 2019-04-01 09:26 | NUR ---
PT TRANSFERED TO CARDIAC REHAB VIA WC. PT DENIES NAUSEA. EARLIER ZOFRAN EFFECTIVE.
--- NOTE | 2019-04-01 10:02 | NUR ---
INFORMED SIGNED CONSENT OBTAINED FOR LEXISCAN STRESS TEST WITH DR MILLS. RESTING EKG NSR HR 79 BP 158/70. INVERTED T WAVE V-V2. PT COMPLETED ONE MINUTE OF A LEXISCAN PROTOCOL WITH PT RECEIVING LEXISCAN 0.4MG IV OVER 10 SECONDS. NO ARRHYTHMIAS OR ST CHANGES NOTED PT C/O DIZZINESS WITH INJECTION. LAST RECOVERY HR OF 94 BP 144/66. PT IN STABLE CONDITION, AWAITING NUCLEAR IMAGES.
--- NOTE | 2019-04-01 11:00 | NUR ---
DR MILLS IN. STRESS TEST COMPLETED. CLARIFIED LOPRESSOR ORDER WT DOCTOR. PT TO BE ONLY LOPRESSOR 50MG PO BID. CHANGES MADE.
--- NOTE | 2019-04-01 13:50 | NUR ---
PT RETURNED FROM STRESS TEST. NO C/O VOICED.
--- NOTE | 2019-04-01 14:43 | NUR ---
Dehydrator in to see patient. No new needs or request at this time. She denies any home needs. When medically stable she will be discharged to home.
--- NOTE | 2019-04-01 15:52 | NUR ---
BAINS CATH BAG LEAKING. PT REQUESTING FOR IT TO BE D/C'D. DR URIAS UPDATED. BAINS CATH D/C'D INTACT.
[2019-04-01 16:00] VITALS: BP 130/67
--- NOTE | 2019-04-01 17:35 | NUR ---
PT TRANSFERED TO 5E VIA BED. PT REPORT GIVEN TO RECEIVING NURSE. PT'S WITH PT AT TIME OF TRANSFER.
--- NOTE | 2019-04-01 17:45 | NUR ---
PATIENT TRANSFERRED INTO [facility] WITH ALL BELONGINGS AND FAMILY AT BEDSIDE. PATIENT RE-ORIENTED TO ROOM. REPORT RECEIVED FROM ICU NURSE. VITAL SIGNS STABLE. CALL LIGHT WITHIN REACH. NO FURTHER QUESTIONS FROM PATIENT OR FAMILY.
[2019-04-01 20:00] VITALS: BP 114/59
--- NOTE | 2019-04-01 20:00 | NUR ---
AAOX3 SITTING UP IN BED. 02 INTACT AT 2 LPM VIA N/C. PT. STATES THAT SHE DOES NOT USE O2 AT HOME. LUNGS VERY DIMINISHED BILATERALLY WITH POOR AIR EXCHANGED. NO COUGH NOTED AT THIS TIME. ABDOMEN OBESE WITH NORMOACTIVE BOWEL SOUNDS. HEP LOCK INTACT TO RIGHT WRIST. PT. VOICES NO C/O AT THIS TIME. BSC AT BEDSIDE. NO DISTRESS NOTED; CALL LIGHT WITHIN REACH.
--- NOTE | 2019-04-01 22:00 | NUR ---
TOOK PO MEDICATIONS WITHOUT DIFFICULTY. VOICES NO C/O AT THIS TIME. CALL LIGHT WITHIN REACH.
[2019-04-02] VITALS: BP 151/61
--- NOTE | 2019-04-02 06:15 | NUR ---
IV started left forearm with # protective cath after 2 attempts. Site prepped with Chloroprep. Sterile dressing applied. Patient tolerated procedure well. IV infusing at cc/hr. MARY BETH CHEW
[2019-04-02 06:49] LABS: BASO % 0.1 % (0.0-1.0); EOS % 0.1 % (1.0-4.0); HEMATOCRIT 44.1 % (37.0-47.0); HEMOGLOBIN 13.1 g/dl (12.0-16.0); LYMPH # 1.2 10*3/uL (1.3-4.4); LYMPH % 7.8 % (27.0-41.0); MEAN CELL VOLUME 89.1 fl (81.0-99.0); MEAN CORPUSCULAR HGB 26.5 pg (27.0-31.0); MEAN CORPUSCULAR HGB CONC 29.7 g/dl (33.0-37.0); MEAN PLATELET VOLUME 10.7 fl (9.6-12.3); MONO # 1.3 10*3/uL (0.1-1.0); MONO % 8.8 % (3.0-9.0); NEUT # 12.3 10*3/uL (2.3-7.9); NEUT % 82.6 % (47.0-73.0); PLATELET COUNT AUTOMATED 336 10*3/uL (130-400); RED BLOOD COUNT 4.95 10*6/uL (4.10-5.10); WHITE BLOOD COUNT 14.8 10*3/uL (4.8-10.8)
[2019-04-02 07:23] LABS: BUN 29 mg/dl (7-24); CHLORIDE 102 mmol/L (98-107); CREATININE 1.04 mg/dL (0.55-1.02); POTASSIUM 4.4 mmol/L (3.5-5.1); SODIUM 140 mmol/L (136-145)
[2019-04-02 08:00] VITALS: BP 138/66
[2019-04-02 12:00] VITALS: BP 126/60
--- NOTE | 2019-04-02 14:28 | NUR ---
Patient resting quietly with no c/o discomfort. Respirations easy and regular. Vital signs stable. No overt distress. ASIA HERRERA
[2019-04-02] MEDS ORDERED: LEVAQUIN750 M1 PO (15:55)
--- NOTE | 2019-04-02 16:50 | NUR ---
PATIENT GIVEN DISCHARGE INSTRUCTIONS. ALL QUESTIONS ANSWERED. INSTRUCTED PATIENT TO MONITOR DAILY WEIGHT FOR HEART FAILURE AND TO TAKE ALL MEDICATIONS PERSCRIBED. PATIENT STATED SHE WOULD ONLY TAKE HER LASIX WHEN SHE FELT SHE NEEDED IT. PATIENT DISCHARGED WITH AND DAUGHTER IN A WHEEL CHAIR WITH PA ASSISTANCE. DISCHARGED WITH ALL BELONGINGS.
--- NOTE | 2019-04-04 16:37 | NUR ---
PHYSICAL THERAPY CO-SIGN I approve of the Physical Therapy notes written above. ZARINA BETTENCOURT, PT,DPT
== END 2019-04-02 16:50 | disposition home or self-care (01) | DRG 291 ==
LOC: ED 09:18 → EDHOLD 09:55 → ICCU 09:55 → 5E 04-01 17:24
PROVIDERS: Emergency Medicine; Internal Medicine Critical Care Medicine; ADMIT Internal Medicine
PROC: 5A09357 Assistance with Respiratory Ventilation, Less than 24 Consecutive Hours, Continuous Positive Airway Pressure (ICD-10-PCS; 2019-03-30)
PROC: 4A02XM4 Measurement of Cardiac Total Activity, External Approach (ICD-10-PCS; principal; 2019-04-01)
PROC: 3E073KZ Introduction of Other Diagnostic Substance into Coronary Artery, Percutaneous Approach (ICD-10-PCS; 2019-04-01)
DX: I11.0 Hypertensive heart disease with heart failure (principal); J18.9 Pneumonia, unspecified organism; J96.21 Acute and chronic respiratory failure with hypoxia; J96.22 Acute and chronic respiratory failure with hypercapnia; R65.20 Severe sepsis without septic shock; J44.1 Chronic obstructive pulmonary disease with (acute) exacerbation; J44.0 Chronic obstructive pulmonary disease with (acute) lower respiratory infection; J45.901 Unspecified asthma with (acute) exacerbation; L03.116 Cellulitis of left lower limb; L03.115 Cellulitis of right lower limb; I16.1 Hypertensive emergency; Z68.43 Body mass index [BMI] 50.0-59.9, adult; I50.43 Acute on chronic combined systolic (congestive) and diastolic (congestive) heart failure; E66.01 Morbid (severe) obesity due to excess calories; M10.9 Gout, unspecified; E78.2 Mixed hyperlipidemia; K59.09 Other constipation; G47.33 Obstructive sleep apnea (adult) (pediatric); E11.65 Type 2 diabetes mellitus with hyperglycemia; T38.0X5A Adverse effect of glucocorticoids and synthetic analogues, initial encounter; I87.2 Venous insufficiency (chronic) (peripheral); M19.90 Unspecified osteoarthritis, unspecified site; R74.8 Abnormal levels of other serum enzymes; E11.69 Type 2 diabetes mellitus with other specified complication; K21.0 Gastro-esophageal reflux disease with esophagitis; E78.00 Pure hypercholesterolemia, unspecified; Z98.891 History of uterine scar from previous surgery; Z83.3 Family history of diabetes mellitus; Z82.49 Family history of ischemic heart disease and other diseases of the circulatory system; Z88.6 Allergy status to analgesic agent; Z79.84 Long term (current) use of oral hypoglycemic drugs; Z79.82 Long term (current) use of aspirin; Z79.899 Other long term (current) drug therapy; Y92.89 Other specified places as the place of occurrence of the external cause; Z90.710 Acquired absence of both cervix and uterus; Z88.8 Allergy status to other drugs, medicaments and biological substances; Z80.3 Family history of malignant neoplasm of breast

== ENCOUNTER → 2019-08-01 | Outpatient (CLI) | payer OTHER ==
[~2019-08-01] MED LIST changes: +LEVAQUIN750 M1 PO; +LOPRESSOR50 M1 PO; +METFORMIN HYDR500 MG PO; +NEURONTIN400 MG PO; +VITAMIN D50000 UNIT PO; +ZOCOR20 MG PO
[2019-08-01 12:29] LABS: BASO # 0.1 10*3/uL (0.0-0.1); BASO % 0.6 % (0.0-1.0); EOS # 0.2 10*3/uL (0.0-0.4); EOS % 1.3 % (1.0-4.0); HEMATOCRIT 43.7 % (37.0-47.0); HEMOGLOBIN 13.6 g/dl (12.0-16.0); LYMPH # 2.3 10*3/uL (1.3-4.4); LYMPH % 16.4 % (27.0-41.0); MEAN CELL VOLUME 88.6 fl (81.0-99.0); MEAN CORPUSCULAR HGB 27.6 pg (27.0-31.0); MEAN CORPUSCULAR HGB CONC 31.1 g/dl (33.0-37.0); MEAN PLATELET VOLUME 10.6 fl (9.6-12.3); MONO # 1.1 10*3/uL (0.1-1.0); MONO % 7.5 % (3.0-9.0); NEUT # 10.4 10*3/uL (2.3-7.9); NEUT % 73.4 % (47.0-73.0); PLATELET COUNT AUTOMATED 310 10*3/uL (130-400); RED BLOOD COUNT 4.93 10*6/uL (4.10-5.10); RED CELL DISTRI WIDTH 15.7 % (0-14.5); WHITE BLOOD COUNT 14.1 10*3/uL (4.8-10.8)
[2019-08-01 12:59] LABS: ALBUMIN 3.2 gm/dl (3.1-4.5); ALKALINE PHOSPHATASE 184 U/L (45-117); BUN 15 mg/dl (7-24); CHLORIDE 107 mmol/L (98-107); CHOLESTEROL 148 mg/dL (<200); CREATININE 1.05 mg/dL (0.55-1.02); FREE T4 1.16 ng/dl (0.76-1.46); HDL CHOLESTEROL 36 mg/dl (40-60); LDL CHOLESTEROL 61 mg/dL (9-159); POTASSIUM 4.2 mmol/L (3.5-5.1); SGOT/AST 11 IU/L (3-35); SGPT/ALT 23 U/L (12-78); SODIUM 143 mmol/L (136-145); TOTAL PROTEIN 7.1 gm/dL (6.4-8.2); TRIGLYCERIDES 253 mg/dl (<150); VLDL CHOLESTEROL 51 mg/dL (6-40)
[2019-08-01 15:52] LABS: VITAMIN D, 25-HYDROXY 71.1 ng/mL (30-100)
== END | disposition home or self-care (01) ==
LOC: LAB 11:57
PROVIDERS: Internal Medicine
DX: E78.2 Mixed hyperlipidemia (principal); E55.9 Vitamin D deficiency, unspecified; E11.9 Type 2 diabetes mellitus without complications; I10 Essential (primary) hypertension

== ENCOUNTER → 2021-01-17 | Outpatient (CLI) | payer MEDICARE, MEDICAID ==
[2021-01-17 10:30] LABS: BASO # 0.1 10*3/uL (0.0-0.1); BASO % 0.7 % (0.0-1.0); EOS # 0.2 10*3/uL (0.0-0.4); EOS % 1.8 % (1.0-4.0); LYMPH # 1.8 10*3/uL (1.3-4.4); LYMPH % 14.8 % (27.0-41.0); MEAN CELL VOLUME 87.9 fl (81.0-99.0); MEAN CORPUSCULAR HGB 27.4 pg (27.0-31.0); MEAN CORPUSCULAR HGB CONC 31.2 g/dl (33.0-37.0); MEAN PLATELET VOLUME 10.2 fl (9.6-12.3); MONO # 0.8 10*3/uL (0.1-1.0); MONO % 6.3 % (3.0-9.0); NEUT # 9.2 10*3/uL (2.3-7.9); NEUT % 75.7 % (47.0-73.0); PLATELET COUNT AUTOMATED 277 10*3/uL (130-400); RED BLOOD COUNT 4.78 10*6/uL (4.10-5.10); RED CELL DISTRI WIDTH 15.1 % (0-14.5); WHITE BLOOD COUNT 12.1 10*3/uL (4.8-10.8)
[2021-01-17 11:00] LABS: ALBUMIN 3.1 gm/dl (3.1-4.5); BUN 20 mg/dl (7-24); CHLORIDE 107 mmol/L (98-107); CHOLESTEROL 145 mg/dL (<200); CREATININE 0.85 mg/dL (0.55-1.02); POTASSIUM 3.7 mmol/L (3.5-5.1); SGPT/ALT 18 U/L (12-78); SODIUM 142 mmol/L (136-145)
[2021-01-17 11:09] LABS: ALKALINE PHOSPHATASE 165 U/L (45-117); FREE T4 1.15 ng/dl (0.76-1.46); LDL CHOLESTEROL 70 mg/dL (9-159); SGOT/AST 9 IU/L (3-35); TOTAL PROTEIN 6.9 gm/dL (6.4-8.2); TRIGLYCERIDES 149 mg/dl (<150)
[2021-01-17 13:25] LABS: VITAMIN D, 25-HYDROXY 80.7 ng/mL (30-100)
== END | disposition home or self-care (01) ==
LOC: LAB 10:07
PROVIDERS: ATTEND Internal Medicine
DX: I10 Essential (primary) hypertension (principal); E78.2 Mixed hyperlipidemia; E11.9 Type 2 diabetes mellitus without complications; E55.9 Vitamin D deficiency, unspecified

== ENCOUNTER 2021-04-24 19:52 | Inpatient (IN) | payer MEDICARE, MEDICAID ==
[~2021-04-24] VITALS: Ht 154.9 cm; Wt 102.7 kg
[2021-04-24 21:46] VITALS: BP 127/74
[2021-04-24 22:31] LABS: BASO % 0.2 % (0.0-1.0); HEMATOCRIT 42.3 % (37.0-47.0); LYMPH % 10.2 % (27.0-41.0); MEAN CELL VOLUME 84.4 fl (81.0-99.0); MEAN CORPUSCULAR HGB 27.1 pg (27.0-31.0); MEAN CORPUSCULAR HGB CONC 32.2 g/dl (33.0-37.0); MEAN PLATELET VOLUME 10.3 fl (9.6-12.3); MONO # 0.7 10*3/uL (0.1-1.0); MONO % 6.7 % (3.0-9.0); NEUT # 8.1 10*3/uL (2.3-7.9); NEUT % 81.5 % (47.0-73.0); PLATELET COUNT AUTOMATED 301 10*3/uL (130-400); RED BLOOD COUNT 5.01 10*6/uL (4.10-5.10); RED CELL DISTRI WIDTH 15.1 % (0-14.5); WHITE BLOOD COUNT 9.9 10*3/uL (4.8-10.8)
[2021-04-24 22:51] LABS: ALBUMIN 2.8 gm/dl (3.1-4.5); ALKALINE PHOSPHATASE 127 U/L (45-117); BUN 22 mg/dl (7-24); CHLORIDE 113 mmol/L (98-107); CREATININE 1.03 mg/dL (0.55-1.02); POTASSIUM 3.6 mmol/L (3.5-5.1); SGOT/AST 25 IU/L (3-35); SGPT/ALT 26 U/L (12-78); SODIUM 143 mmol/L (136-145); TOTAL PROTEIN 7.4 gm/dL (6.4-8.2)
[2021-04-25 06:20] VITALS: BP 146/63
[2021-04-25 06:42] LABS: BASO % 0.2 % (0.0-1.0); HEMATOCRIT 42.4 % (37.0-47.0); LYMPH # 0.6 10*3/uL (1.3-4.4); LYMPH % 6.7 % (27.0-41.0); MEAN CELL VOLUME 86.7 fl (81.0-99.0); MEAN CORPUSCULAR HGB 27.2 pg (27.0-31.0); MEAN CORPUSCULAR HGB CONC 31.4 g/dl (33.0-37.0); MEAN PLATELET VOLUME 10.2 fl (9.6-12.3); MONO # 0.3 10*3/uL (0.1-1.0); MONO % 3.8 % (3.0-9.0); NEUT # 7.4 10*3/uL (2.3-7.9); PLATELET COUNT AUTOMATED 280 10*3/uL (130-400); RED BLOOD COUNT 4.89 10*6/uL (4.10-5.10); RED CELL DISTRI WIDTH 14.9 % (0-14.5); WHITE BLOOD COUNT 8.4 10*3/uL (4.8-10.8)
[2021-04-25 07:38] LABS: ALBUMIN 2.7 gm/dl (3.1-4.5); ALKALINE PHOSPHATASE 122 U/L (45-117); BUN 19 mg/dl (7-24); CHLORIDE 111 mmol/L (98-107); CREATININE 0.85 mg/dL (0.55-1.02); LDH 362 U/L (84-246); POTASSIUM 3.8 mmol/L (3.5-5.1); SGOT/AST 22 IU/L (3-35); SGPT/ALT 20 U/L (12-78); SODIUM 142 mmol/L (136-145); TOTAL PROTEIN 7.1 gm/dL (6.4-8.2)
[2021-04-25 08:35] VITALS: BP 134/68
[2021-04-25 12:51] VITALS: BP 100/72
[2021-04-25 18:02] VITALS: BP 156/74
[2021-04-25 23:11] VITALS: BP 149/62
[2021-04-26 06:16] LABS: ALBUMIN 2.6 gm/dl (3.1-4.5); ALKALINE PHOSPHATASE 109 U/L (45-117); BUN 21 mg/dl (7-24); CHLORIDE 110 mmol/L (98-107); CREATININE 0.79 mg/dL (0.55-1.02); LDH 320 U/L (84-246); POTASSIUM 3.5 mmol/L (3.5-5.1); SGOT/AST 19 IU/L (3-35); SGPT/ALT 21 U/L (12-78); SODIUM 142 mmol/L (136-145); TOTAL PROTEIN 6.7 gm/dL (6.4-8.2)
[2021-04-26 06:37] LABS: BASO % 0.2 % (0.0-1.0); HEMATOCRIT 40.1 % (37.0-47.0); LYMPH # 0.9 10*3/uL (1.3-4.4); LYMPH % 9.1 % (27.0-41.0); MEAN CELL VOLUME 85.9 fl (81.0-99.0); MEAN CORPUSCULAR HGB 27.4 pg (27.0-31.0); MEAN CORPUSCULAR HGB CONC 31.9 g/dl (33.0-37.0); MEAN PLATELET VOLUME 10.7 fl (9.6-12.3); MONO # 0.8 10*3/uL (0.1-1.0); MONO % 7.8 % (3.0-9.0); NEUT # 7.8 10*3/uL (2.3-7.9); NEUT % 80.9 % (47.0-73.0); PLATELET COUNT AUTOMATED 293 10*3/uL (130-400); RED BLOOD COUNT 4.67 10*6/uL (4.10-5.10); RED CELL DISTRI WIDTH 14.6 % (0-14.5); WHITE BLOOD COUNT 9.6 10*3/uL (4.8-10.8)
[2021-04-26 07:51] VITALS: BP 154/77
[2021-04-26 11:00] VITALS: BP 74/41
[2021-04-26 15:55] VITALS: BP 126/77
[2021-04-26 17:55] VITALS: BP 146/62
[2021-04-26 20:00] VITALS: BP 109/53
[2021-04-27] VITALS: BP 159/74
[2021-04-27 07:28] LABS: ALBUMIN 2.7 gm/dl (3.1-4.5); CHLORIDE 110 mmol/L (98-107); POTASSIUM 3.5 mmol/L (3.5-5.1); SODIUM 144 mmol/L (136-145)
[2021-04-27 07:33] LABS: ALKALINE PHOSPHATASE 110 U/L (45-117); BUN 26 mg/dl (7-24); CREATININE 0.91 mg/dL (0.55-1.02); LDH 312 U/L (84-246); SGOT/AST 22 IU/L (3-35); SGPT/ALT 21 U/L (12-78); TOTAL PROTEIN 6.8 gm/dL (6.4-8.2)
[2021-04-27 08:00] VITALS: BP 148/72
[2021-04-27 12:00] VITALS: BP 142/58
[2021-04-27 16:00] VITALS: BP 154/82
[2021-04-27 20:00] VITALS: BP 148/62
[2021-04-28] VITALS: BP 148/61
[2021-04-28 06:08] LABS: HEMATOCRIT 45.5 % (37.0-47.0); MEAN CELL VOLUME 86.8 fl (81.0-99.0); MEAN CORPUSCULAR HGB 26.7 pg (27.0-31.0); MEAN CORPUSCULAR HGB CONC 30.8 g/dl (33.0-37.0); MEAN PLATELET VOLUME 10.1 fl (9.6-12.3); PLATELET COUNT AUTOMATED 387 10*3/uL (130-400); RED BLOOD COUNT 5.24 10*6/uL (4.10-5.10); RED CELL DISTRI WIDTH 14.6 % (0-14.5); WHITE BLOOD COUNT 12.8 10*3/uL (4.8-10.8)
[2021-04-28 06:39] LABS: ALBUMIN 2.8 gm/dl (3.1-4.5); BUN 23 mg/dl (7-24); CHLORIDE 111 mmol/L (98-107); CREATININE 0.91 mg/dL (0.55-1.02); LDH 345 U/L (84-246); POTASSIUM 3.6 mmol/L (3.5-5.1); SGOT/AST 20 IU/L (3-35); SGPT/ALT 19 U/L (12-78); SODIUM 144 mmol/L (136-145)
[2021-04-28 06:40] LABS: ALKALINE PHOSPHATASE 111 U/L (45-117)
[2021-04-28 07:28] LABS: TOTAL CELLS COUNTED 100 #CELLS
[2021-04-28 07:29] LABS: PLATELET SUFFICIENCY NORMAL (NORMAL)
[2021-04-28 08:00] VITALS: BP 120/78
[2021-04-28 12:00] VITALS: BP 142/66
[2021-04-28 16:00] VITALS: BP 131/78
[2021-04-28 20:00] VITALS: BP 158/68
[2021-04-29] VITALS: BP 156/67
[2021-04-29 07:22] LABS: ALBUMIN 2.6 gm/dl (3.1-4.5); BUN 22 mg/dl (7-24); CHLORIDE 110 mmol/L (98-107); POTASSIUM 3.5 mmol/L (3.5-5.1); SGOT/AST 18 IU/L (3-35); SGPT/ALT 25 U/L (12-78); SODIUM 144 mmol/L (136-145); TOTAL PROTEIN 6.3 gm/dL (6.4-8.2)
[2021-04-29 07:23] LABS: ALKALINE PHOSPHATASE 99 U/L (45-117)
[2021-04-29 08:00] VITALS: BP 147/90
[2021-04-29 12:00] VITALS: BP 131/76
[2021-04-29 16:00] VITALS: BP 126/90
[2021-04-29 20:00] VITALS: BP 132/56
[2021-04-30] VITALS: BP 132/51
[2021-04-30 06:33] LABS: EOS # 0.1 10*3/uL (0.0-0.4); EOS % 1.4 % (1.0-4.0); HEMATOCRIT 39.4 % (37.0-47.0); MEAN CORPUSCULAR HGB CONC 31.2 g/dl (33.0-37.0)
[2021-04-30 06:39] LABS: CHLORIDE 109 mmol/L (98-107); POTASSIUM 3.7 mmol/L (3.5-5.1); SGOT/AST 17 IU/L (3-35); SGPT/ALT 22 U/L (12-78); SODIUM 142 mmol/L (136-145)
[2021-04-30 06:43] LABS: ALBUMIN 2.5 gm/dl (3.1-4.5); ALKALINE PHOSPHATASE 90 U/L (45-117); BUN 25 mg/dl (7-24); CREATININE 0.84 mg/dL (0.55-1.02)
[2021-04-30 07:03] LABS: BASO % 0.3 % (0.0-1.0); LYMPH # 1.8 10*3/uL (1.3-4.4); LYMPH % 17.1 % (27.0-41.0); MEAN CELL VOLUME 87.8 fl (81.0-99.0); MEAN CORPUSCULAR HGB 27.4 pg (27.0-31.0); MEAN PLATELET VOLUME 10.7 fl (9.6-12.3); MONO # 1.1 10*3/uL (0.1-1.0); MONO % 10.9 % (3.0-9.0); PLATELET COUNT AUTOMATED 308 10*3/uL (130-400); RED BLOOD COUNT 4.49 10*6/uL (4.10-5.10); RED CELL DISTRI WIDTH 14.7 % (0-14.5); WHITE BLOOD COUNT 10.3 10*3/uL (4.8-10.8)
[2021-04-30 08:00] VITALS: BP 155/90
[2021-04-30 12:00] VITALS: BP 141/99
[2021-04-30 16:00] VITALS: BP 135/70
[2021-04-30 20:00] VITALS: BP 125/63
[2021-05-01] VITALS: BP 116/60
[2021-05-01 06:58] LABS: BASO % 0.3 % (0.0-1.0); EOS # 0.1 10*3/uL (0.0-0.4); EOS % 1.1 % (1.0-4.0); HEMATOCRIT 40.2 % (37.0-47.0); LYMPH # 1.7 10*3/uL (1.3-4.4); LYMPH % 14.6 % (27.0-41.0); MEAN CORPUSCULAR HGB 27.5 pg (27.0-31.0); MEAN CORPUSCULAR HGB CONC 31.6 g/dl (33.0-37.0); MEAN PLATELET VOLUME 10.5 fl (9.6-12.3); MONO # 1.3 10*3/uL (0.1-1.0); NEUT # 8.3 10*3/uL (2.3-7.9); NEUT % 71.2 % (47.0-73.0); PLATELET COUNT AUTOMATED 284 10*3/uL (130-400); RED BLOOD COUNT 4.62 10*6/uL (4.10-5.10); RED CELL DISTRI WIDTH 14.6 % (0-14.5); WHITE BLOOD COUNT 11.7 10*3/uL (4.8-10.8)
[2021-05-01 07:14] LABS: ALBUMIN 2.4 gm/dl (3.1-4.5); BUN 22 mg/dl (7-24); CHLORIDE 108 mmol/L (98-107); POTASSIUM 3.8 mmol/L (3.5-5.1); SGOT/AST 11 IU/L (3-35); SGPT/ALT 18 U/L (12-78); SODIUM 141 mmol/L (136-145)
[2021-05-01 07:18] LABS: ALKALINE PHOSPHATASE 89 U/L (45-117); CREATININE 0.88 mg/dL (0.55-1.02); LDH 216 U/L (84-246); TOTAL PROTEIN 5.9 gm/dL (6.4-8.2)
[2021-05-01 08:00] VITALS: BP 148/66
[2021-05-01] MEDS ORDERED: Lovenox40 MG/0.4 PO (08:49)
[2021-05-01] MEDS ORDERED: ZITHROMAX250 MG PO (08:49)
[2021-05-01] MEDS ORDERED: DECADRON6 M1 PO (08:49)
[2021-05-01 12:00] VITALS: BP 121/55
== END 2021-05-01 16:20 | disposition home or self-care (01) | DRG 177 ==
LOC: ED 19:52 → EDHOLD 23:34 → 4E 04-26 17:11
PROVIDERS: Internal Medicine; Internal Medicine Critical Care Medicine; ADMIT Internal Medicine; ATTEND Internal Medicine
PROC: XW033E5 Introduction of Remdesivir Anti-infective into Peripheral Vein, Percutaneous Approach, New Technology Group 5 (ICD-10-PCS; principal; 2021-04-26)
DX: U07.1 COVID-19 (principal); J12.82 Pneumonia due to coronavirus disease 2019; J96.01 Acute respiratory failure with hypoxia; I50.30 Unspecified diastolic (congestive) heart failure; J44.1 Chronic obstructive pulmonary disease with (acute) exacerbation; Z68.42 Body mass index [BMI] 45.0-49.9, adult; E44.1 Mild protein-calorie malnutrition; J45.909 Unspecified asthma, uncomplicated; F41.1 Generalized anxiety disorder; E78.00 Pure hypercholesterolemia, unspecified; I11.0 Hypertensive heart disease with heart failure; R00.1 Bradycardia, unspecified; E66.01 Morbid (severe) obesity due to excess calories; E11.42 Type 2 diabetes mellitus with diabetic polyneuropathy; I87.2 Venous insufficiency (chronic) (peripheral); K22.5 Diverticulum of esophagus, acquired; Z90.710 Acquired absence of both cervix and uterus; Z88.5 Allergy status to narcotic agent; Z88.8 Allergy status to other drugs, medicaments and biological substances; Z82.49 Family history of ischemic heart disease and other diseases of the circulatory system

== ENCOUNTER → 2021-10-02 | Outpatient (CLI) | payer MEDICARE, MEDICAID ==
[~2021-10-02] MED LIST changes: +DECADRON6 M1 PO; +Lovenox40 MG/0.4 PO; +ZITHROMAX250 MG PO
[2021-10-02 15:27] LABS: BASO # 0.1 10*3/uL (0.0-0.1); BASO % 0.4 % (0.0-1.0); EOS # 0.2 10*3/uL (0.0-0.4); EOS % 1.1 % (1.0-4.0); HEMATOCRIT 40.8 % (37.0-47.0); LYMPH # 2.2 10*3/uL (1.3-4.4); LYMPH % 14.9 % (27.0-41.0); MEAN CELL VOLUME 86.6 fl (81.0-99.0); MEAN CORPUSCULAR HGB CONC 31.1 g/dl (33.0-37.0); MEAN PLATELET VOLUME 9.7 fl (9.6-12.3); MONO % 6.6 % (3.0-9.0); NEUT # 11.4 10*3/uL (2.3-7.9); NEUT % 76.5 % (47.0-73.0); PLATELET COUNT AUTOMATED 301 10*3/uL (130-400); RED BLOOD COUNT 4.71 10*6/uL (4.10-5.10); RED CELL DISTRI WIDTH 14.5 % (0-14.5); WHITE BLOOD COUNT 14.9 10*3/uL (4.8-10.8)
[2021-10-02 15:46] LABS: BUN 16 mg/dl (7-24); CHLORIDE 109 mmol/L (98-107); CHOLESTEROL 121 mg/dL (<200); CREATININE 0.85 mg/dL (0.55-1.02); POTASSIUM 3.9 mmol/L (3.5-5.1); SGOT/AST 22 IU/L (3-35); SGPT/ALT 44 U/L (12-78); SODIUM 142 mmol/L (136-145); T3 UPTAKE 37 % (31-39); THYROXINE (T4) TOTAL 9.8 ug/dl (4.8-13.9); TOTAL PROTEIN 7.3 gm/dL (6.4-8.2); TRIGLYCERIDES 164 mg/dl (<150)
[2021-10-02 15:47] LABS: ALKALINE PHOSPHATASE 204 U/L (45-117)
[2021-10-02 15:53] LABS: LDL CHOLESTEROL 43 mg/dL (9-159)
[2021-10-02 17:40] LABS: VITAMIN D, 25-HYDROXY 59.2 ng/mL (30-100)
== END | disposition home or self-care (01) ==
LOC: LAB 13:57 → RAD 14:00 → US 15:00
PROVIDERS: ATTEND Internal Medicine
DX: M85.851 Other specified disorders of bone density and structure, right thigh (principal); I12.9 Hypertensive chronic kidney disease with stage 1 through stage 4 chronic kidney disease, or unspecified chronic kidney disease; N18.30 Chronic kidney disease, stage 3 unspecified; D51.9 Vitamin B12 deficiency anemia, unspecified; E11.9 Type 2 diabetes mellitus without complications; Z00.01 Encounter for general adult medical examination with abnormal findings; E55.9 Vitamin D deficiency, unspecified; I73.9 Peripheral vascular disease, unspecified; Z78.0 Asymptomatic menopausal state

== ENCOUNTER → 2021-12-30 | Outpatient (CLI) | payer MEDICARE, MEDICAID | END | disposition home or self-care (01) | LOC: CT 14:00 | PROVIDERS: ATTEND Internal Medicine | DX: M17.12 Unilateral primary osteoarthritis, left knee (principal) ==

== ENCOUNTER → 2022-04-21 | Outpatient (CLI) | payer MEDICARE, MEDICAID ==
[2022-04-21 13:25] LABS: ALKALINE PHOSPHATASE 136 U/L (45-117); BUN 14 mg/dl (7-24); CHLORIDE 111 mmol/L (98-107); POTASSIUM 4.1 mmol/L (3.5-5.1); SGOT/AST 8 IU/L (3-35); SGPT/ALT 16 U/L (12-78); SODIUM 142 mmol/L (136-145); TOTAL PROTEIN 6.7 gm/dL (6.4-8.2)
== END | disposition home or self-care (01) ==
LOC: LAB 12:48
PROVIDERS: ATTEND Orthopaedic Surgery
DX: R53.82 Chronic fatigue, unspecified (principal)

== ENCOUNTER → 2022-06-03 | Outpatient (CLI) | payer MEDICARE, MEDICAID | END | disposition home or self-care (01) | LOC: MAMMO 15:00 | PROVIDERS: ATTEND Internal Medicine | DX: Z12.31 Encounter for screening mammogram for malignant neoplasm of breast (principal); R92.1 Mammographic calcification found on diagnostic imaging of breast ==

== ENCOUNTER → 2023-07-09 | Outpatient (CLI) | payer MEDICARE, MEDICAID ==
[2023-07-09 12:42] LABS: POTASSIUM 4.4 mmol/L (3.4-5.1)
== END | disposition home or self-care (01) ==
LOC: LAB 11:52
PROVIDERS: ATTEND Internal Medicine
DX: I10 Essential (primary) hypertension (principal)

== ENCOUNTER → 2025-07-10 | Outpatient (CLI) | payer OTHER ==
[2025-07-10 12:04] LABS: BASO # 0.1 10*3/uL (0.0-0.1); BASO % 0.6 % (0.0-1.0); EOS # 0.3 10*3/uL (0.0-0.4); EOS % 1.9 % (1.0-4.0); MEAN CELL VOLUME 93.2 fl (81.0-99.0); MEAN CORPUSCULAR HGB 28.3 pg (27.0-31.0); MEAN PLATELET VOLUME 10.4 fl (9.6-12.3); MONO # 1.1 10*3/uL (0.1-1.0); MONO % 7.7 % (3.0-9.0); NEUT # 9.8 10*3/uL (2.3-7.9); NEUT % 71.0 % (47.0-73.0); NUCLEATED RED BLOOD CELL 0.0 % (0.0-0.0); NUCLEATED RED BLOOD CELL 0.0 10*3/uL (0.0-0.0); PLATELET COUNT AUTOMATED 313 10*3/uL (130-400); RED CELL DISTRI WIDTH 14.3 % (0-14.5)
[2025-07-10 12:28] LABS: BUN 35 mg/dl (9-23); FREE T4 1.52 ng/dl (0.89-1.76); LDL CHOLESTEROL 66 mg/dL (9-159)
[2025-07-10 12:38] LABS: SGPT/ALT < 7 U/L (5-49)
[2025-07-10 12:40] LABS: VITAMIN D, 25-HYDROXY 82.7 ng/mL (30-100)
== END | disposition home or self-care (01) ==
LOC: LAB 11:41
PROVIDERS: ATTEND Internal Medicine
DX: Z13.1 Encounter for screening for diabetes mellitus (principal); Z13.21 Encounter for screening for nutritional disorder; Z13.220 Encounter for screening for lipoid disorders; Z13.228 Encounter for screening for other metabolic disorders; Z13.6 Encounter for screening for cardiovascular disorders; Z13.89 Encounter for screening for other disorder; E11.9 Type 2 diabetes mellitus without complications